=== PATIENT | male | born 1965 | race Caucasian/White ===

== ENCOUNTER 2022-03-21 15:11 | Emergency (ER) | payer BC, SELFPAY ==
[2022-03-21] VITALS (13 sets, daily range): BP systolic 121–181; BP diastolic 63–101; PULSE 77–92; RESP 18; TEMP 36.8–36.9; O2SAT 86–98; BMI 39.9
--- NOTE | 2022-03-21 15:22 | PC.NURSE ---
ED MD at ; 2 ice packs given to patient
--- NOTE | 2022-03-21 15:23 | XR_ITS ---
PROCEDURE INFORMATION: Exam: XR Chest Exam date and time: 03/21/2022 4:14 PM Age: 56 years old Clinical indication: Injury or trauma; Fall; Blunt trauma (contusions or hematomas); Patient HX: Fell off of ladder. TECHNIQUE: Imaging protocol: XR of the chest. Views: 4 or more views. COMPARISON: CT LUMBAR SPINE WO CON 03/21/2022 4:09 PM FINDINGS: Lungs: Low lung volumes. No consolidation seen. Pleural spaces: Unremarkable. No pleural effusion. No pneumothorax. Heart/Mediastinum: Limited assessment due to low lung volumes. Diaphragm: The right hemidiaphragm is elevated. Bones/joints: Mild scoliosis. And L1 burst fracture is again demonstrated. IMPRESSION: No evidence of acute cardiopulmonary disease.
--- NOTE | 2022-03-21 15:23 | CT_ITS ---
PROCEDURE INFORMATION: Exam: CT Lumbar Spine Without Contrast Exam date and time: 03/21/2022 4:09 PM Age: 56 years old Clinical indication: Injury or trauma; Fall; Blunt trauma (contusions or hematomas); Additional info: Fell off of ladder, C/O severe low back pain TECHNIQUE: Imaging protocol: Computed tomography images of the lumbar spine without contrast. Radiation optimization: All CT scans at this facility use at least one of these dose optimization techniques: automated exposure control; mA and/or kV adjustment per patient size (includes targeted exams where dose is matched to clinical indication); or iterative reconstruction. COMPARISON: CT THORACIC SPINE WO CON 03/21/2022 4:05 PM FINDINGS: Bones/joints: Mild upper lumbar dextroconvex scoliosis. Slight degenerative retrolisthesis of L3 on L4. A [id number]-[id number], acute L1 burst fracture. Posterior endplate osseous retropulsion measures approximately 5 mm causing mild central spinal canal stenosis. There are acute fractures of the right L1 transverse process and left lamina. An acute fracture of the left L2 transverse process. Wlwi-gn-zygesyut degenerative changes of the sacroiliac joints. L1-L2: No significant disc protrusion. No severe spinal canal stenosis. No significant neural foraminal narrowing. L2-L3: No significant disc protrusion. No severe spinal canal stenosis. No significant neural foraminal narrowing. L3-L4: Disc bulge and facet arthropathy without contribution to significant central spinal canal stenosis. Khvn-ph-gantnnli bilateral neural foraminal stenoses. L4-L5: A left paracentral disc protrusion. Moderate facet arthropathy and ligamentum flavum buckling. Central spinal canal stenosis is mild. Whcy-op-vlziibhf right neural foraminal stenosis. No significant left neural foraminal narrowing. L5-S1: Foraminal bulging disc and facet arthropathy causing mild right neural foraminal stenosis. Stomach and bowel: There is colonic diverticulosis. Vasculature: The aorta demonstrates calcified atherosclerosis. Soft tissues: Paravertebral soft tissue edema at the L1 level. IMPRESSION: 1. An acute L1 burst fracture. 2. Acute fractures of the right L1 transverse process and left lamina. 3. Acute fracture of the left L2 transverse process.
--- NOTE | 2022-03-21 15:23 | CT_ITS ---
PROCEDURE INFORMATION: Exam: CT Cervical Spine Without Contrast Exam date and time: 03/21/2022 4:02 PM Age: 56 years old Clinical indication: Injury or trauma; Fall; Blunt trauma; Additional info: Fell off of ladder TECHNIQUE: Imaging protocol: Computed tomography images of the cervical spine without contrast. Radiation optimization: All CT scans at this facility use at least one of these dose optimization techniques: automated exposure control; mA and/or kV adjustment per patient size (includes targeted exams where dose is matched to clinical indication); or iterative reconstruction. COMPARISON: [facility] CT CHEST W/O CONTRAST 08/29/2016 2:55 AM FINDINGS: Bones/joints: No acute fracture. Normal alignment. Discs/Spinal canal/Neural foramina: Mild degenerative changes of the cervical spine are present. There is no severe spinal canal stenosis. Lungs: Lung apices are clear. Soft tissues: Unremarkable. IMPRESSION: No acute abnormality.
--- NOTE | 2022-03-21 15:23 | CT_ITS ---
PROCEDURE INFORMATION: Exam: CT Thoracic Spine Without Contrast Exam date and time: 03/21/2022 4:05 PM Age: 56 years old Clinical indication: Injury or trauma; Fall; Blunt trauma (contusions or hematomas); Additional info: Fell off of ladder TECHNIQUE: Imaging protocol: Computed tomography images of the thoracic spine without contrast. Radiation optimization: All CT scans at this facility use at least one of these dose optimization techniques: automated exposure control; mA and/or kV adjustment per patient size (includes targeted exams where dose is matched to clinical indication); or iterative reconstruction. COMPARISON: 1. CT CERVICAL SPINE WO CON 03/21/2022 4:[address] LUMBAR SPINE WO CON 03/21/2022 4:09 PM FINDINGS: Bones/joints: Slight thoracolumbar levoconvex scoliosis. Slight upper to midthoracic dextroconvex scoliosis. No acute thoracic spine fracture seen. An acute L1 burst fracture is reported separately. Discs/Spinal canal/Neural foramina: No high-grade disc height loss. The thoracic spine demonstrates bridging prevertebral spondylosis. No high-grade stenoses. Soft tissues: Unremarkable. Mediastinum: Small hiatal hernia. Liver: The visualized liver is more hypodense than usual consistent with fatty change. IMPRESSION: No thoracic spine fracture seen.
--- NOTE | 2022-03-21 15:23 | CT_ITS ---
PROCEDURE INFORMATION: Exam: CT Head Without Contrast Exam date and time: 03/21/2022 4:02 PM Age: 56 years old Clinical indication: Injury or trauma; Fall; Blunt trauma (contusions or hematomas); Additional info: Fell off of ladder TECHNIQUE: Imaging protocol: Computed tomography of the head without contrast. Radiation optimization: All CT scans at this facility use at least one of these dose optimization techniques: automated exposure control; mA and/or kV adjustment per patient size (includes targeted exams where dose is matched to clinical indication); or iterative reconstruction. COMPARISON: No relevant prior studies available. FINDINGS: Brain: No acute intracranial hemorrhage, cerebral edema, or midline shift. Cerebral ventricles: No hydrocephalus. Paranasal sinuses: There is a small mucus retention cyst or polyp within the left maxillary sinus. Mastoid air cells: The mastoid air cells are clear. Orbital cavities: The visualized orbits appear unremarkable. Bones/joints: No acute fracture. Soft tissues: Unremarkable. IMPRESSION: No acute intracranial abnormality.
--- NOTE | 2022-03-21 15:23 | XR_ITS ---
PROCEDURE INFORMATION: Exam: XR Pelvis Exam date and time: 03/21/2022 4:16 PM Age: 56 years old Clinical indication: Pelvic pain; Patient HX: Patient fell off of ladder. ; Additional info: Fall TECHNIQUE: Imaging protocol: XR pelvis. Views: 1 or 2 view. COMPARISON: CT LUMBAR SPINE WO CON 03/21/2022 4:09 PM FINDINGS: Bones/joints: No acute fracture seen. No dislocation. Soft tissues: Unremarkable. IMPRESSION: No acute fracture seen.
--- NOTE | 2022-03-21 15:24 | HMH.EDFALL ---
ED Disposition Condition on Discharge: Good - Critical Care Critical Care Time: No <Miguel Angel Costa - Last Filed: 03/21/22 19:55> <Jimmy Ann - Last Filed: 03/21/22 22:15> Clinical Impression: Closed L1 vertebral fracture Qualifiers: Encounter type: initial encounter Fracture morphology: burst- stable Qualified Code(s): S32.011A - Stable burst fracture of first lumbar vertebra, initial encounter for closed fracture Disposition: Xfer Short-Term Hosp Instructions: DI for Vertebral Fracture Prescriptions: Ibuprofen [Ibuprofen 800mg Tablet] 800 mg PO TIDP PRN #20 tab PRN Reason: Moderate Pain [facility] methocarbamoL [Methocarbamol 500mg Tablet] 1,000 mg PO TID 10 Days #60 tab Transmission Status: [facility] Hydrocod/Acet 5/325 mg [[place] 5/325mg tablet] 1 tab PO Q6HP PRN #12 tab PRN Reason: Moderate Pain Transmission Status: Pending to [facility] Referrals: Isaac Phelps MD [Primary Care Provider] - [facility] [Other] Dann Kirby [Referring] - Forms: Transfer Record - ED Attestation: On 03/21/22, the high probability of a clinically significant, sudden or life threatening deterioration of the following system(s) required my full and direct attention, intervention and personal management. The time I documented below is in addition to time spent performing reported procedures but includes the following listed in this critical care notation. Medical Decision Making - Medical Records Medical records reviewed: Yes: I reviewed the patient's medical records. - [place] Inquiry Pt receiving controlled substance: Yes [place] was queried for this patient: No Reason not queried -: Emergent pt cond-no time Risks and benefits of using a controlled substance: were discussed with pt by me - Radiology Data #1 Image(s): Chest, Pelvis Image Reviewed: Yes I reviewed the patient's radiology results, Yes I reviewed the patient's radiology image, Yes I have reviewed radiologist's interpretation - CT Data CT Scan: Head, C-Spine, T-Spine, L-Spine Time Received: 19:[address] Reviewed: Yes: I have reviewed the patient's CT results, I have viewed the radiologist's interpretation - Reevaluation(s) Time: 19:50 <Miguel Angel Costa - Last Filed: 03/21/22 19:55> <Jimmy Ann - Last Filed: 03/21/22 22:15> Vital Signs: 03/21/22 15:12 03/21/22 15:31 03/21/22 16:02 Temperature 98.4 F Temperature Source Oral Pulse Rate 77 85 Pulse Rate [Left Radial] 90 Respiratory Rate 18 Blood Pressure 181/98 H 121/63 Blood Pressure [Right Arm] 155/101 H Blood Pressure Mean 124 82 Blood Pressure Mean [Right Arm] 119 Blood Pressure Source [Right Arm] Automatic Cuff Blood Pressure Position [Right Arm] Sitting 02 Sat by Pulse Oximetry 95 95 94 L Oxygen Delivery Method Room Air 03/21/22 16:31 03/21/22 17:00 03/21/22 18:49 Temperature Temperature Source Pulse Rate 80 79 84 Pulse Rate [Left Radial] Respiratory Rate Blood Pressure 128/78 124/72 151/91 H Blood Pressure [Right Arm] Blood Pressure Mean 85 88 102 Blood Pressure Mean [Right Arm] Blood Pressure Source [Right Arm] Blood Pressure Position [Right Arm] 02 Sat by Pulse Oximetry 93 L 93 L 93 L Oxygen Delivery Method 03/21/22 19:01 03/21/22 19:30 03/21/22 20:30 Temperature Temperature Source Pulse Rate 83 82 82 Pulse Rate [Left Radial] Respiratory Rate Blood Pressure 139/70 147/86 H 138/84 Blood Pressure [Right Arm] Blood Pressure Mean 93 102 99 Blood Pressure Mean [Right Arm] Blood Pressure Source [Right Arm] Blood Pressure Position [Right Arm] 02 Sat by Pulse Oximetry 96 94 L 94 L Oxygen Delivery Method Orders (Tests/Meds): ED MEDICATIONS Generic Name Dose Route Start Last Admin Trade Name Freq PRN Reason Stop Dose Admin Sodium Chloride 1,000 mls @ 999 mls/hr 03/21/22 19:30
--- NOTE | 2022-03-21 18:05 | PC.NURSE ---
placed call to [facility] for transfer
--- NOTE | 2022-03-21 18:39 | PC.NURSE ---
Called back to [facility] for update, they advised there were a few in front of us and they were working on it
--- NOTE | 2022-03-21 18:45 | PC.NURSE ---
Hilda Zarate, RN at
--- NOTE | 2022-03-21 20:00 | PC.NURSE ---
Spoke with transfer center, advised they were getting the images crossed over and would call back after ortho looked at them.
== END 2022-03-21 23:27 | disposition short-term general hospital (02) ==
PROVIDERS: Emergency Provider Emergency Medicine; PCP Family Medicine
DX: S32.011A Stable burst fracture of first lumbar vertebra, initial encounter for closed fracture (principal); S32.021A Stable burst fracture of second lumbar vertebra, initial encounter for closed fracture; W11.XXXA Fall on and from ladder, initial encounter; Y92.019 Unspecified place in single-family (private) house as the place of occurrence of the external cause
CPT/HCPCS: 70450; 71045; 72125; 72128; 72131; 72170; 96365; 96372; 96375; 96376; 99284; J2405

== ENCOUNTER → 2022-05-01 07:52 | Outpatient (CLI) | payer BC, SELFPAY ==
[2022-05-01 14:37] LABS: Alanine Aminotransferase 30 U/L (12-78); Albumin Level 4.4 g/dl (3.5-5.0); Albumin/Globulin Ratio 1.6 (1.1-1.8); Alkaline Phosphatase 101 U/L (38-126); Anion Gap 13.3 mEq/L (5-15); Aspartate Amino Transferase 34 U/L (17-59); Bilirubin,Total 0.7 mg/dl (0.2-1.3); Blood Urea Nitrogen 13 mg/dl (9-20); Calcium 9.6 mg/dl (8.4-10.2); Carbon Dioxide 29 mmol/L (22.0-30.0); Chloride 101 mmol/L (98-107); Chol/HDL Ratio 4.7 (1-3.5); Cholesterol 203 mg/dl (140-200); Estimated Glomerular Filt Rate 77 ml/min (>60); GFR (African American) 93 ML/MIN (>60); Globulin 2.7 g/dL (1.3-3.2); Glucose 112 mg/dl (74-100); HDL Cholesterol 43 mg/dl (40-60); Potassium 4.3 mmoL/L (3.5-5.1); Sodium 139 mmol/L (136-145); Total Protein,Serum 7.1 g/dl (6.3-8.2); Triglycerides 174 mg/dl (30-150); VLDL Cholesterol 35 mg/dL (0-40)
[2022-05-01 14:48] LABS: Direct LDL Cholesterol 130.32 mg/dL (100-129)
[2022-05-01 15:06] LABS: Prostate Specific Ag Screen 1.3 ng/ml (0.0-4.0); Thyroid Stimulating Hormone 4.34 uIU/mL (0.465-4.68)
[2022-05-02 08:15] LABS: Testosterone,Total 240 ng/dL (264-916)
== END ==
PROVIDERS: Visit Provider Nurse Practitioner Family
DX: I10 Essential (primary) hypertension (principal); R79.89 Other specified abnormal findings of blood chemistry; E66.01 Morbid (severe) obesity due to excess calories; Z12.5 Encounter for screening for malignant neoplasm of prostate
CPT/HCPCS: 36415; 80053; 80061; 84403; 84443; G0103

== ENCOUNTER → 2023-02-26 12:32 | Outpatient (CLI) | payer BC, SELFPAY ==
[2023-02-26 12:55] VITALS: PULSE 63; PULSE 66
--- NOTE | 2023-02-26 13:26 | XR_ITS ---
FINAL REPORT CLINICAL HISTORY: HTN. COMPARISON: 03/2022 FINDINGS: There is no evidence of effusion or other pleural disease. The mediastinum has a normal appearance. The cardiac silhouette is unremarkable. IMPRESSION: Unremarkable chest exam. Reviewed, Interpreted and Dictated by Shanel Evans MD Transcribed by Abdi Mckeon Authenticated and [facility]
== END ==
PROVIDERS: PCP Nurse Practitioner Family; Visit Provider Nurse Practitioner Family
DX: Z01.818 Encounter for other preprocedural examination (principal); E66.9 Obesity, unspecified
CPT/HCPCS: 71046; 94060; 94640

== ENCOUNTER → 2023-07-31 13:45 | Outpatient (CLI) | payer BC, SELFPAY ==
[2023-07-31 17:30] LABS: Basophils # 0.1 K/mm3 (0-0.2); Basophils % 0.4 % (0.1-2.0); Eosinophils # 0.2 K/mm3 (0.0-0.4); Eosinophils % 1.5 % (0.1-12.0); Hematocrit 47.9 % (42.0-52.0); Hemoglobin 16.8 g/dL (14.1-18.0); Lymphocytes # 1.9 K/mm3 (0.7-4.5); Lymphocytes % 16.2 % (10-50); Mean Corpuscular Hemoglobin 32.6 pg (27.0-31.2); Mean Corpuscular Volume 93.2 fl (80-94); Mean Platelet Volume 9.3 fl (7.4-10.4); Monocytes % 8.5 % (1.7-9.3); Neutrophils # 8.5 K/mm3 (1.8-7.8); Neutrophils % 73.4 % (37.0-80.0); Platelet Count 245 K/mm3 (142-424); Red Blood Count 5.14 M/mm3 (4.60-6.20); Red Cell Distribution Width 13.3 % (11.5-17.5); White Blood Count 11.6 K/mm3 (4.8-10.8)
[2023-07-31 18:21] LABS: Alanine Aminotransferase 33 U/L (12-78); Albumin Level 4.6 g/dl (3.5-5.0); Albumin/Globulin Ratio 1.4 (1.1-1.8); Alkaline Phosphatase 89 U/L (38-126); Anion Gap 15.3 mEq/L (5-15); Aspartate Amino Transferase 36 U/L (17-59); Bilirubin,Total 1.2 mg/dl (0.2-1.3); Blood Urea Nitrogen 19 mg/dl (9-20); Carbon Dioxide 31 mmol/L (22.0-30.0); Chloride 100 mmol/L (98-107); Estimated Glomerular Filt Rate 62 ml/min (>60); GFR (African American) 75 ML/MIN (>60); Globulin 3.3 g/dL (1.3-3.2); Glucose 94 mg/dl (74-100); Potassium 4.3 mmoL/L (3.5-5.1); Sodium 142 mmol/L (136-145); Total Protein,Serum 7.9 g/dl (6.3-8.2)
== END ==
PROVIDERS: PCP Nurse Practitioner Family; Visit Provider Nurse Practitioner Family
DX: N39.0 Urinary tract infection, site not specified (principal)
CPT/HCPCS: 36415; 80053; 85025; 87086

== ENCOUNTER 2024-09-14 10:51 | Outpatient (CLI) | payer BC, SELFPAY ==
--- NOTE | 2024-09-14 10:56 | XR_ITS ---
FINAL REPORT CLINICAL HISTORY: gross hematuria FINDINGS: A single view of the abdomen was obtained. There is a nonobstructive bowel gas pattern. There are no abnormally dilated loops of small bowel. There is a moderate amount of retained stool. Moderate degenerative changes are noted of the spine. IMPRESSION: 1. Nonobstructive bowel gas pattern. 2. Moderate amount of retained stool. Reviewed, Interpreted and Dictated by Narayan Doran III, MD Transcribed by Renetta Felix Authenticated and [facility]
[2024-09-14 13:29] LABS: Basophils # 0.1 K/mm3 (0-0.2); Basophils % 0.8 % (0.1-2.0); Eosinophils # 0.2 K/mm3 (0.0-0.4); Eosinophils % 2.1 % (0.1-12.0); Hemoglobin 15.9 g/dL (14.1-18.0); Lymphocytes # 2.2 K/mm3 (0.7-4.5); Lymphocytes % 26.5 % (10-50); Mean Corpuscular Hemoglobin 32.1 pg (27.0-31.2); Mean Corpuscular Volume 89.2 fl (80-94); Mean Platelet Volume 8.3 fl (7.4-10.4); Monocytes # 0.6 K/mm3 (0.1-1.0); Monocytes % 7.1 % (1.7-9.3); Neutrophils # 5.2 K/mm3 (1.8-7.8); Neutrophils % 63.5 % (37.0-80.0); Platelet Count 273 K/mm3 (142-424); Red Blood Count 4.94 M/mm3 (4.60-6.20); Red Cell Distribution Width 13.8 % (11.5-17.5); White Blood Count 8.3 K/mm3 (4.8-10.8)
[2024-09-14 14:13] LABS: Albumin Level 4.7 g/dl (3.5-5.0); Chloride 103 mmol/L (98-107); Potassium 4.5 mmoL/L (3.5-5.1); Sodium 142 mmol/L (136-145)
[2024-09-14 14:16] LABS: Alanine Aminotransferase 19 U/L (12-78); Alkaline Phosphatase 75 U/L (38-126); Anion Gap 16.5 mEq/L (5-15); Aspartate Amino Transferase 27 U/L (17-59); Bilirubin,Total 0.8 mg/dl (0.2-1.3); Blood Urea Nitrogen 17 mg/dl (9-20); Carbon Dioxide 27 mmol/L (22.0-30.0); Estimated Glomerular Filt Rate 86 ml/min (>60); GFR (African American) 104 ML/MIN (>60); Globulin 2.4 g/dL (1.3-3.2); Total Protein,Serum 7.1 g/dl (6.3-8.2)
[2024-09-14 14:17] LABS: Calcium 9.6 mg/dl (8.4-10.2); Glucose 81 mg/dl (74-100)
[2024-09-14 15:17] LABS: Prostate Specific Ag Screen 1.7 ng/ml (0.0-4.0)
== END 2024-09-14 23:59 | disposition home or self-care (01) ==
LOC: RAD 10:53
PROVIDERS: PCP Nurse Practitioner Family; Visit Provider Nurse Practitioner Family
DX: R31.0 Gross hematuria (principal); Z12.5 Encounter for screening for malignant neoplasm of prostate; R53.83 Other fatigue
CPT/HCPCS: 74018; 80053; 85025; 87086; 87088; 87186; G0103

== ENCOUNTER 2025-09-27 15:39 | Outpatient (CLI) | payer BC, SELFPAY ==
[2025-09-27 17:07] LABS: Hematocrit 44.1 % (42.0-52.0); Hemoglobin 15.6 g/dL (14.1-18.0); Immature Granulocytes % 0.7 %; Mean Corpuscular HGB Conc 35.4 g/dL (31.8-35.4); Mean Corpuscular Hemoglobin 31.5 pg (27.0-31.2); Mean Corpuscular Volume 89.1 fl (80-94); Nucleated Red Blood Cells % 0 %; Platelet Count 256 K/mm3 (142-424); Red Blood Count 4.95 M/mm3 (4.60-6.20); Red Cell Distribution Width-SD 41.1 fL; White Blood Count 7.6 K/mm3 (4.8-10.8)
[2025-09-27 18:08] LABS: Alanine Aminotransferase 21 U/L (12-78); Albumin Level 5.2 g/dl (3.5-5.0); Albumin/Globulin Ratio 1.9 (1.1-1.8); Alkaline Phosphatase 82 U/L (38-126); Anion Gap 16.4 mEq/L (5-15); Aspartate Amino Transferase 32 U/L (17-59); Bilirubin,Total 0.9 mg/dl (0.2-1.3); Blood Urea Nitrogen 15 mg/dl (9-20); Calcium 10.0 mg/dl (8.4-10.2); Carbon Dioxide 26 mmol/L (22.0-30.0); Chloride 102 mmol/L (98-107); Cholesterol 240 mg/dl (140-200); Creatinine,Serum 1.00 mg/dl (0.66-1.25); Estimated Glomerular Filt Rate 76 ml/min (>60); GFR (African American) 92 ML/MIN (>60); Globulin 2.8 g/dL (1.3-3.2); Glucose 92 mg/dl (74-100); HDL Cholesterol 55 mg/dl (40-60); Potassium 4.4 mmoL/L (3.5-5.1); Sodium 140 mmol/L (136-145); Total Protein,Serum 8.0 g/dl (6.3-8.2); Triglycerides 236 mg/dl (30-150)
[2025-09-27 18:28] LABS: 25-OH Vitamin D, Total 37.8 ng/mL (30-100)
[2025-09-27 18:37] LABS: Thyroid Stimulating Hormone 3.83 uIU/mL (0.465-4.68)
== END 2025-09-27 23:59 | disposition home or self-care (01) ==
LOC: LAB.DROPOF 09-28 14:49
PROVIDERS: PCP Nurse Practitioner Family; Visit Provider Nurse Practitioner Family
DX: L29.9 Pruritus, unspecified (principal); I10 Essential (primary) hypertension; Z13.0 Encounter for screening for diseases of the blood and blood-forming organs and certain disorders involving the immune mechanism; Z12.5 Encounter for screening for malignant neoplasm of prostate
CPT/HCPCS: 80053; 80061; 82306; 83970; 84443; 85025; G0103